=== PATIENT | female | born 1940 | race Caucasian/White ===

== ENCOUNTER 2021-02-13 01:43 | Day surgery (SDC) | payer MEDICARE, SELFPAY ==
[2021-02-12 10:58] VITALS: BMI 18.9
[2021-02-13] VITALS (9 sets, daily range): BP systolic 109–147; BP diastolic 66–72; PULSE 74–80; RESP 12–18; TEMP 36.8; O2SAT 99–100
--- NOTE | ~2021-02-13 | XR_ITS ---
EXAMINATION: XR abdomen/kub 1V INDICATION: Right-sided kidney stones TECHNIQUE: Supine view of the abdomen is obtained. COMPARISON: None FINDINGS: A 13 mm stone projects in the expected location of the right renal pelvis between the right L2 and L3 transverse processes. There are multiple phleboliths of the pelvis. The bowel gas pattern is normal. Right-sided surgical clips are noted. There are changes of right hip arthroplasty. Vertebr oplasty change is noted at L2. IMPRESSION: 1. 13 mm stone projecting in the right renal pelvis. Reviewed, dictated and finalized at location B.
--- NOTE | 2021-02-13 07:01 | WPDHPUPDATE1 ---
History and Physical Update Update Date/Time: 02/13/21 07:01 History and Physical has been reviewed, including an updated exam of the patient. There are NO changes in the patient's condition. Risks, benefits, and alternatives have been discussed and questions answered. Patient agrees to proceed with procedure.
--- NOTE | 2021-02-13 10:03 | PM.HPGS ---
History of Present Illness History of Present Illness Consent: Risks, benefits, and alternatives have been discussed and questions answered. Patient agrees to proceed with procedure. Chief complaint: right renal stone Narrative: Jessica Pablo is a 80 year old female who was recently evaluated for hematuria. CT the abdomen and pelvis revealed an 11 mm and 3 mm right renal calculus. KUB shows these stones to be calcified. After discussion of options selected for right ESWL. Review of Systems Cardiovascular: Cardiovascular: Denies chest pain, Denies lightheadedness, Denies palpitations and Denies dyspnea Respiratory: Respiratory: Denies dyspnea Gastrointestinal: Gastrointestinal: Denies diarrhea, Denies nausea and Denies vomiting Genitourinary: Genitourinary: Denies hematuria and Denies dysuria Endocrine: Endocrine: Denies palpitations [facility] Social History Social History Smoking packs per day: 1 Smoking cigarettes per day: 20.0 Years smoked: 25 Smoking pack-years: 25.00 Smoking status: Former smoker Tobacco type: cigarettes Smoking end date: 02/13/96 Alcohol intake: never Substance use: never Living arrangements: with family [facility] Spiritual care concerns: No Meds Home Medications and Allergies Home Medications Medication Instructions Recorded Confirmed Type cyanocobalamin (vitamin B-12) 500 mcg PO DAILY 02/12/21 02/12/21 History escitalopram oxalate 5 mg PO QAM 02/12/21 02/12/21 History ferrous sulfate 325 mg PO DAILY 02/12/21 02/12/21 History furosemide 20 mg PO QAM 02/12/21 02/12/21 History magnesium oxide 400 mg PO QAM 02/12/21 02/12/21 History pantoprazole 40 mg PO BID 02/12/21 02/12/21 History potassium chloride 30 meq PO DAILY 02/12/21 02/12/21 History pregabalin 50 mg PO TID PRN 02/12/21 02/12/21 History tramadol 50 mg PO Q6-8H 02/12/21 02/12/21 History Allergies Allergy/AdvReac Type Severity Reaction Status Date / Time No Known Allergies Allergy Verified 02/12/21 10:44 Exam Const: General: no acute distress Resp: Effort & Inspection: normal respiratory effort GI: Inspection: non-distended GI Palp: No abdominal tenderness and No Guarding due to palpation present (GI) Auscultation: normal bowel sounds Assessment and Plan Assessment and plan (1) Right renal stone: Code(s): N20.0 - Calculus of kidney Status: Acute Assessment and Plan: Right ESWL
--- NOTE | 2021-02-13 11:19 | ECG_ITS ---
Measurements Intervals [place] Rate: 70 P: 38 FL: 178 QRS: 29 QRSD: 90 T: 21 QT: 415 QTc: 450 Interpretive Statements SINUS RHYTHM BASELINE ARTIFACT- I, II, III, AVR, AVL, AVF, V1-V6 NORMAL ECG Electronically Signed On 02-13-2021 13:07:37 CDT by Zane Meraz D.O.
--- NOTE | 2021-02-13 11:47 | WPDANESEPPF ---
Anes - Initial Pre Proc Eval Procedure: Operation Date: 02/13/21 13:30 Proposed Procedures p Right Renal Extracorporeal Shock Wave Lithotripsy - Fabian Briggs MD Date/Time: 02/13/21 11:47 Surgeon: Fabian Briggs MD Pre Op Diagnosis: right renal stone Patient Data Age: 80 Gender: F Height: 1.52 m Weight: 44 kg Last Vital Signs Temp 36.8 C 02/13/21 11:31 Pulse 76 02/13/21 11:31 Resp 18 02/13/21 11:31 BP 109/68 02/13/21 11:31 Pulse Ox 99 02/13/21 11:31 Allergies Allergy/AdvReac Type Severity Reaction Status Date / Time No Known Allergies Allergy Verified 02/13/21 11:33 Home Medications Medication Instructions Recorded Confirmed Type cyanocobalamin (vitamin B-12) 500 mcg PO DAILY 02/12/21 02/13/21 History escitalopram oxalate 5 mg PO QAM 02/12/21 02/13/21 History ferrous sulfate 325 mg PO DAILY 02/12/21 02/13/21 History furosemide 20 mg PO QAM 02/12/21 02/13/21 History magnesium oxide 400 mg PO QAM 02/12/21 02/13/21 History pantoprazole 40 mg PO BID 02/12/21 02/13/21 History potassium chloride 30 meq PO DAILY 02/12/21 02/13/21 History pregabalin 50 mg PO TID PRN 02/12/21 02/13/21 History tramadol 50 mg PO Q6-8H 02/12/21 02/13/21 History Patient hx anesthesia problems: none Family hx anesthesia problems: none PMFSH Past Medical History Medical History Anxiety COPD (chronic obstructive pulmonary disease) Hypertension Pulmonary embolism Social History Social History Smoking packs per day: 1 Smoking cigarettes per day: 20.0 Years smoked: 25 Smoking pack-years: 25.00 Smoking status: Former smoker Tobacco type: cigarettes Smoking end date: 02/13/96 Alcohol intake: never Substance use: never Living arrangements: with family Additional living arrangements comments: [facility] Spiritual care concerns: No Anes - Eval Final PreProcedure Day of Procedure 02/13/21 11:47 Patient weight: normal Heart: regular rate and rhythm Lungs: decreased breath sounds Airway: Mallampati scale class II Neurological: alert and oriented Last oral intake: >/= 8 hours ASA classification: III Emergent: no Anesthetic plan: proceed Anesthesia type and monitoring: general LMA and standard monitoring Informed Consent: The patient's anesthetic plan and its attendant risks and benefits were discussed with the patient/family/POA. Questions were solicited and answers provided to the satisfaction of the patient/family/POA.
[2021-02-13] MEDS: LACTATED RINGERS 1,000 ML 30 ML IV CONT (11:58)
[2021-02-13 12:06] LABS: Hematocrit 39.6 % (37.0-47.0); Hemoglobin 12.6 g/dL (12.0-15.0)
[2021-02-13 12:16] LABS: INR 0.9
[2021-02-13 12:17] LABS: Anion Gap 7 mmol/L (8-16); Blood Urea Nitrogen 19 mg/dL (7-17); Calcium 8.9 mg/dL (8.4-10.2); Carbon Dioxide 23 mmol/L (22-30); Chloride 109 mmol/L (98-107); Estimated CRCL calculation 26 ml/min; Estimated Glomerular Filt Rate 48; Glucose 84 mg/dL (65-105); Partial Thromboplastin Time 29.5 SECONDS (22.3-36.8); Potassium 3.3 mmol/L (3.4-5.0); Sodium 139 mmol/L (137-145)
[2021-02-13] MEDS: ceFAZolin 2 GM/D5W 50 ML 2 GM/50 ML BAG IVPB (13:05)
--- NOTE | 2021-02-13 13:39 | W.PM.PROC2 ---
Procedure Note - Detailed Date of Procedure 02/13/21 Pre-op Diagnosis right renal stone Post-op Diagnosis same Procedure Performed Right ESWL Surgeon Fabian Briggs MD Anesthesia general Description of Procedure The patient was brought to the operative suite where she was placed in the supine position on the [place] lithotripsy table. The focal point of the lithotripter was placed at a 11mm right renal calculus. A total of 2500 shocks were delivered at a power setting of 4. There appeared to be good fragmentation of the stone. The patient tolerated the procedure well and was taken to the recovery room in good condition. Drains No Packing No Pathology none sent Complications No immediate complications Condition stable Disposition PACU
--- NOTE | 2021-02-13 15:34 | SUR.PHASEII ---
DISREGARD CHARTING BY THIS RN AT 1414 AND 1440.
== END 2021-02-13 15:30 | disposition home or self-care (01) ==
PROVIDERS: Anesthesiology; PCP Family Medicine; Visit Provider Urology
PROC: (CPT 50590; principal; 2021-02-13 13:30)
DX: N20.0 Calculus of kidney (principal); Z87.891 Personal history of nicotine dependence; F41.9 Anxiety disorder, unspecified; J44.9 Chronic obstructive pulmonary disease, unspecified; Z86.711 Personal history of pulmonary embolism; Z51.81 Encounter for therapeutic drug level monitoring; Z79.899 Other long term (current) drug therapy; I10 Essential (primary) hypertension
CPT/HCPCS: 50590; 36415; 74018; 80048; 85014; 85018; 85610; 85730; 93005; J0690; J2250; J2704; J3010; J7120

== ENCOUNTER 2021-02-27 14:29 | Outpatient (CLI) | payer MEDICARE, SELFPAY ==
--- NOTE | ~2021-02-27 | XR_ITS ---
EXAMINATION: XR abdomen/kub 1V EXAM DATE: 02/27/2021 14:50 INDICATION: Recent lithotripsy. TECHNIQUE: Frontal projection(s) of the abdomen for interpretation. There is no prior study for charbel andrade. FINDINGS: Previously seen large calcific density projecting between the right L2 and L3 transverse pr ocesses no longer identified. There are scattered calcifications below this. Numerous pelvic calcific ations and abdominal surgical clips. Right hip replacement. Nonobstructive bowel gas pattern. IMPRESSION: Nonspecific abdominal calcifications. Reviewed, dictated and finalized at location G.
== END 2021-02-27 14:30 | disposition home or self-care (01) ==
LOC: ANHIMG 14:33
PROVIDERS: PCP Family Medicine; Visit Provider Urology
DX: N20.0 Calculus of kidney (principal)
CPT/HCPCS: 74018